=== PATIENT | female | born 1985 ===

== ENCOUNTER 2019-04-13 13:48 | Emergency (ER) | payer SELFPAY ==
[2019-04-13 15:37] LABS: Bacteria,Urine 1+ /HPF (Negative); Bilirubin,Urine NEG (Negative); Blood,Urine NEG (Negative); Color,Urine Yellow (Yellow); Mucus,Urine FEW /HPF; Protein,Urine <15 mg/dL mg/dL (Negative); Urobilinogen,Urine < 2.0 mg/dL (<2.0)
[2019-04-13] MEDS ORDERED: metroNIDAZOLE 500 MG TAB PO ONE (18:28)
[2019-04-13] MEDS ORDERED: AZITHROMYCIN 250 MG TAB PO ONE (18:28)
[2019-04-13] MEDS ORDERED: LIDOCAINE-MPF (1%) 10 MG/1 ML VIAL 5 ML INFILTRATI ONE (18:28)
--- NOTE | 2019-04-13 18:43 | Emergency Department Report ---
ED Female HPI - General Chief complaint: Urogenital-Female Stated complaint: POSS YEAST INFECTION Time Seen by Provider: 04/13/19 16:41 Source: patient Mode of arrival: Ambulatory Limitations: No Limitations - History of Present Illness Initial comments: This is a 33-year-old female who presents to ED complaining of vaginal discharge for the past 2 weeks. Patient also complaining of vaginal itching. She states discharge is watery and yellow with order. Patient also states that she isn't sexually active about a month ago without any protection. She had made some mild pelvic cramping intermittently. She denies vaginal bleeding, nausea vomiting MD Complaint: vaginal discharge, pelvic pain - Related Data Previous Rx's Medication Instructions Recorded Last Taken Type Fluconazole [Diflucan TAB] 150 mg PO ONCE #1 tablet 04/13/19 Unknown Rx Allergies Allergy/AdvReac Type Severity Reaction Status Date / Time No Known Allergies Allergy Unverified 04/13/19 13:50 ED Review of Systems ROS: Stated complaint: POSS YEAST INFECTION Other details as noted in HPI Comment: All other systems reviewed and negative ED Past Medical Hx - Past Medical History Previous Medical History?: No - Surgical History Past Surgical History?: Yes Additional Surgical History: Breast surgery. - Social History Smoking Status: Never Smoker Substance Use Type: None - Medications Home Medications: Home Medications Medication Instructions Recorded Confirmed Last Taken Type Fluconazole [Diflucan TAB] 150 mg PO ONCE #1 tablet 04/13/19 Unknown Rx ED Physical Exam - General Limitations: No Limitations General appearance: alert, in no apparent distress - Head Head exam: Present: atraumatic, normocephalic - Eye Eye exam: Present: normal appearance - ENT ENT exam: Present: mucous membranes moist - Neck Neck exam: Present: normal inspection - Respiratory Respiratory exam: Present: normal lung sounds bilaterally. Absent: respiratory distress - Cardiovascular Cardiovascular Exam: Present: regular rate, normal rhythm. Absent: systolic murmur, diastolic murmur, rubs, gallop - GI/Abdominal GI/Abdominal exam: Present: soft, normal bowel sounds - External exam: Present: normal external exam Speculum exam: Present: vaginal discharge, cervical discharge Bi-manual exam: Present: cervical motion tendernes, adnexal tenderness. Absent: uterine enlargement, uterine tenderness - Extremities Exam Extremities exam: Present: normal inspection, full ROM - Back Exam Back exam: Present: normal inspection - Neurological Exam Neurological exam: Present: alert, oriented X3 - Psychiatric Psychiatric exam: Present: normal affect, normal mood - Skin Skin exam: Present: warm, dry, intact, normal color. Absent: rash ED Course Vital Signs 04/13/19 04/13/19 14:21 19:34 Temperature 97.7 F Pulse Rate 82 74 Respiratory 18 18 Rate Blood Pressure 111/77 Blood Pressure 118/68 [Right] O2 Sat by Pulse 98 100 Oximetry ED Medical Decision Making - Lab Data Laboratory Last Values Urine Color Yellow (Yellow) 04/13/19 14:54 Urine Turbidity Clear (Clear) 04/13/19 14:54 Urine pH 5.0 (5.0-7.0) 04/13/19 14:54 Ur Specific [place] 1.025 (1.003-1.030) 04/13/19 14:54 Urine Protein <15 mg/dl mg/dL (Negative) 04/13/19 14:54 Urine Glucose (UA) Neg mg/dL (Negative) 04/13/19 14:54 Urine Ketones Neg mg/dL (Negative) 04/13/19 14:54 Urine Blood Neg (Negative) 04/13/19 14:54 Urine Nitrite Neg (Negative) 04/13/19 14:54 Urine Bilirubin Neg (Negative) 04/13/19 14:54 Urine Urobilinogen < 2.0 mg/dL (<2.0) 04/13/19 14:54 Ur Leukocyte Esterase Lg (Negative) 04/13/19 14:54 Urine WBC (Auto) 8.0 /HPF (0.0-6.0) H 04/13/19 14:54 Urine RBC (Auto) 6.0 /HPF (0.0-6.0) 04/13/19 14:54 U Epithel Cells (Auto) 2.0 /HPF (0-13.0) 04/13/19 14:54 Urine Bacteria (Auto) 1+ /HPF (Negative) 04/13/19 14:54 Urine Mucus Few /HPF 04/13/19 14:54 - Medical Decision Making 33-year-old female presents with STD vaginitis. ED course: Urinnalysis, gonorrhea and Chlamydia cultures obtained. Urinalysis positive for leukorrhea, wet prep positive for trichomoniasis and clue cells Patient received 250 mg of Rocephin, azithromycin 1 g, Flagyl 2 g. Scuffs the patient she will begin prescription for Diflucan Discussed with patient positive for STD due to exposure. Discussed with patient findings and treatment Discussed prophylaxis treatment patient is to abstain from sex 7-10 days as treatment. Discussed patient partner knowledge and treatment. Discussed the follow-up with the health department for further STD testing. Patient's alert and oriented times 3. Vital signs are normal patient is in no acute discharge. Patient will be discharged home with instructions. Critical care attestation.: If time is entered above; I have spent that time in minutes in the direct care of this critically ill patient, excluding procedure time. ED Disposition Clinical Impression: STD (sexually transmitted disease), Trichomonas vaginalis (TV) infection Disposition: TO HOME OR SELFCARE Is pt being admited?: No Does the pt Need Aspirin: No Condition: Stable Instructions: Trichomoniasis (ED), Sexually Transmitted Diseases in Adolescents (ED) Additional Instructions: Make sure to follow up with the primary care physician as discussed. Take all your medications as you've been prescribed. If you have any worsening symptoms or develop new symptoms please return to ED immediately. Prescriptions: Fluconazole [Diflucan TAB] 150 mg PO ONCE #1 tablet Referrals: [facility] [Outside] - 3-5 Days [facility] [Outside] - 3-5 Days [facility] [Outside] - 3-5 Days Forms: Accompanied Note, Work/School Release Form(ED) Time of Disposition: 18:45
[2019-04-13 19:36] VITALS: BP 118/68
== END 2019-04-13 21:06 | disposition home or self-care (01) ==
LOC: ED 13:48
DX: A59.01 Trichomonal vulvovaginitis (principal); A64 Unspecified sexually transmitted disease; Z98.890 Other specified postprocedural states; Z79.899 Other long term (current) drug therapy
CPT/HCPCS: 81001; 87210; 87591; 96372; 99284; J0696